=== PATIENT | female | born 1995 ===

== ENCOUNTER 2018-03-05 10:01 | Emergency (ER) | payer OTHER ==
[~2018-03-05] VITALS: Ht 167.6 cm; Wt 67.6 kg
== END 2018-03-05 11:24 | disposition home or self-care (01) ==
LOC: ER 10:01
DX: R21 Rash and other nonspecific skin eruption (principal); T78.49XA Other allergy, initial encounter; X58.XXXA Exposure to other specified factors, initial encounter